=== PATIENT | male | born 1970 | race Caucasian/White ===

== ENCOUNTER 2017-03-29 21:13 | Emergency (ER) | payer OTHER ==
--- NOTE | 2017-03-29 21:21 | ED Physician Documentation ---
PD HPI NVD - Stated complaint Stated Complaint: V/D/F/BODY ACHES - Chief complaint Chief Complaint: General - History obtained from History obtained from: Patient - History of Present Illness Timing - onset: Today Timing - details: Abrupt onset Pain level now: 6 Associated symptoms: No: Fever, Abdominal pain Improved by: Other (no ameliorating factors) Worsened by: Eating (although he is able to tolerate PO, small amounts) Similar symptoms before: Other (some symptoms are similar to episode of food poisoning he had in the past although "that was much, much worse" (per patient)) Recently seen: Not recently seen - Additonal information Additional information: c/o diarrhea since this morning, subsequent nausea and vomiting. Since this evening, he has had worsening generalized body aches, fatigue, and malaise. Review of Systems Constitutional: reports: Chills, Myalgias, Fatigue, Sweats. denies: Fever (did not take temperature at home, but did not feel as though he has had fevers) Ears: denies: Ear pain Throat: denies: Sore throat Cardiac: reports: Reviewed and negative Respiratory: reports: Reviewed and negative GI: reports: Nausea, Vomiting, Diarrhea. denies: Abdominal Pain : denies: Dysuria, Frequency Neurologic: reports: Generalized weakness. denies: Focal weakness, Numbness, Headache PD PAST MEDICAL HISTORY - Past Medical History Cardiovascular: None Respiratory: None Neuro: None Endocrine/Autoimmune: None GI: None : None HEENT: None Psych: None Musculoskeletal: None Derm: None - Past Surgical History Past Surgical History: No - Present Medications Home Medications: Ambulatory Orders Medication Instructions Recorded Confirmed Multivitamin [Multivitamins] 1 mg PO DAILY 07/15/14 07/15/14 - Allergies Allergies/Adverse Reactions: Allergies Allergy/AdvReac Type Severity Reaction Status Date / Time No Known Drug Allergies Allergy Verified 03/29/17 21:18 - Social History Does the pt smoke?: Yes Smoking Status: Current every day smoker Does the pt drink ETOH?: No Does the pt have substance abuse?: No - Immunizations Immunizations are current?: Yes - POLST Patient has POLST: No PD ED PE NORMAL - Vitals Vital signs reviewed: Yes - General General: Alert and oriented X 3, Well developed/nourished, Other (appears "washed out", fatigued, but answers quickly and appropriately) - HEENT HEENT: Other (dry mucous membranes) - Neck Neck: Supple, no meningeal sign - Cardiac Cardiac: RRR, No murmur, No gallop, No rub - Respiratory Respiratory: No respiratory distress, Clear bilaterally - Abdomen Abdomen: Soft, Non tender - Derm Derm: Normal color, Warm and dry Results - Vitals Vitals: Oxygen O2 Source Room air - Labs Labs: Laboratory Tests 03/29/17 03/29/17 03/29/17 21:20 21:50 21:50 WBC 7.3 RBC 4.78 Hgb 14.8 Hct 42.6 MCV 89.0 MCH 30.9 MCHC 34.7 RDW 13.1 Plt Count 189 MPV 9.2 Neut # 6.4 Lymph # 0.6 L Harmon # 0.3 Eos # 0.0 Baso # 0.0 Absolute Nucleated RBC 0.00 Nucleated RBC % 0.0 Sodium 132 L Potassium 3.3 L Chloride 101 Carbon Dioxide 22 Anion Gap 9.0 BUN 14 Creatinine 0.8 Estimated GFR (MDRD) 105 Glucose 126 H Calcium 8.3 L Total Bilirubin 1.3 H AST 26 ALT 33 Alkaline Phosphatase 46 Total Protein 7.1 Albumin 4.1 Globulin 3.0 Albumin/Globulin Ratio 1.4 Lipase < 10 L Influenza A (Rapid) Negative Influenza B (Rapid) Negative Influenza Types A,B Ag - PD MEDICAL DECISION MAKING - ED course Complexity details: reviewed results, re-evaluated patient, considered differential, d/w patient Departure - Departure Disposition: Home, Self Care Clinical Impression: Gastroenteritis Condition: Good Instructions: ED Gastroenteritis Viral Follow-Up: JUDE Christie [Provider Group] (Sunday if symptoms have not resolved) Forms: Activity restrictions Discharge Date/Time: 03/29/17 23:32
[2017-03-29] MEDS ORDERED: ONDANSETRON 4 MG/2 ML VIAL IVP STA (21:38)
[2017-03-29] MEDS ORDERED: SODIUM CHLORIDE 0.9% 1,000 ML IV STA (21:38)
[2017-03-29 22:02] LABS: BASOPHILS % (AUTO) 0.2 %; EOSINOPHILS % (AUTO) 0.1 %; HGB - HEMOGLOBIN 14.8 g/dL (14.0-18.0); LYMPHOCYTES # (AUTO) 0.6 10^3/uL (1.5-3.5); LYMPHOCYTES % (AUTO) 7.6 %; MEAN CORPUSCULAR HEMOGLOBIN 30.9 pg (27.0-31.0); MEAN CORPUSCULAR HGB CONC 34.7 g/dL (32.0-36.0); MEAN PLATELET VOLUME 9.2 fL (7.4-11.4); MONOCYTES # (AUTO) 0.3 10^3/uL (0.0-1.0); MONOCYTES % (AUTO) 4.6 %; NEUTROPHILS # (AUTO) 6.4 10^3/uL (1.5-6.6); NEUTROPHILS % (AUTO) 87.5 %; PLT - PLATELET COUNT 189 10^3/uL (130-450); RED BLOOD COUNT 4.78 10^6/uL (4.70-6.10); RED CELL DISTRIBUTION WIDTH 13.1 % (12.0-15.0); WHITE BLOOD COUNT 7.3 x10^3/uL (4.8-10.8)
[2017-03-29 22:28] LABS: ALBUMIN 4.1 g/dL (3.2-5.5); ALBUMIN/GLOBULIN RATIO 1.4 (1.0-2.2); ALKALINE PHOSPHATASE 46 IU/L (42-121); ALT ALANINE AMINOTRANSFERASE 33 IU/L (10-60); AST ASPARTATE AMINOTRANSFERASE 26 IU/L (10-42); BILIRUBIN,TOTAL 1.3 mg/dL (0.2-1.0); BUN - BLOOD UREA NITROGEN 14 mg/dL (6-20); CALCIUM 8.3 mg/dL (8.5-10.3); CARBON DIOXIDE - CO2 22 mmol/L (21-32); CHLORIDE 101 mmol/L (101-111); CREATININE 0.8 mg/dL (0.6-1.2); GFR - MDRD 105 (>89); GLUCOSE 126 mg/dL (70-100); SODIUM 132 mmol/L (135-145); TOTAL PROTEIN 7.1 g/dL (6.7-8.2)
[2017-03-29 22:30] LABS: LIPASE < 10 U/L (22-51)
[2017-03-29 23:31] VITALS: BP 100/49
== END 2017-03-29 23:32 | disposition home or self-care (01) ==
LOC: ED 21:13
DX: K52.9 Noninfective gastroenteritis and colitis, unspecified (principal); F17.200 Nicotine dependence, unspecified, uncomplicated
CPT/HCPCS: 36415; 80053; 83690; 85025; 87275; 87276; 96361; 96374; 99283

== ENCOUNTER 2021-03-22 14:09 | Outpatient (CLI) | payer OTHER ==
--- NOTE | 2021-03-22 14:52 | SLEEP CARE CONSULTATION ---
Information from patient questionnaire entered by Lucita Jalloh MA. I have reviewed and concur with the information entered by Lucita Jalloh MA. This document represents the service I personally performed and the decisions made by , Batsheva Villasenor ARNP. History of Present Illness Service Date and Time: 03/22/2021 1409 Reason for Visit: New patient (ONSET 02/2011, NO PRIORS, ) Chief Complaint: reports: Snoring (only if on his back ), Frequent awakenings at night Date of Onset: 10 PLUS YEARS Usual bedtime: 3155-4271 Time it takes to fall asleep: 15-30 MINUTES Snores at night: Yes Observed to quit breathing while asleep: No Sleeps alone due to snoring: No Number of times waking at night: 2-4 Reasons for waking at night: reports: Snoring (very rare), Bathroom, Other ( snoring, dog). denies: Choking, Gasping for air Toss, Turn, or Twitch while sleeping: Yes Recalls having dreams: Yes Usually gets out of bed at: 8526-2107; weekends 9-11 AM Feels refreshed in the morning: Yes Morning headache: No Sleepy or fatigued during the day: Yes Ever fallen asleep while driving: No Takes day naps: No Dreams during day naps: No Prior sleep studies: No Additional HPI information: I had the pleasure of seeing CODY LONG today regarding the possibility of him having a sleep disorder. His current complaints are snoring when on his back and frequent night awakenings. He states he was questioned by his PCM at his las appointment about frequent awakening at night and was referred for evaluation. He states that he does snore if he sleeps on his back but he only sleeps on his sides or stomach. He has never been told he has pauses in breathing while asleep. He denies unrefreshed sleep or excessive daytime sleepiness. He states he does get tired in the afternoons. He denies morning headaches or drowsy driving. He does have some restless sensations in his legs when he lays down to sleep. He states his son was diagnosed with sleep apnea but is not adhering to his therapy (possible PAP machine). - Parasomnia Symptoms Ever been unable to move upon waking from sleep: No Walks in sleep: No Talks in sleep: No Ever acted out dreams in sleep: No Ever felt weak in the knees when startled or emotional: No Bothered by creepy, crawly, restless sensations in legs: Yes (nightly when laying down; sleeping makes it feel better) Problems with memory or concentration: No Subjective Initial [place] Sleepiness Scale score: 8 (2021) Social History The patient's occupation is a [employer]. Patient is and lives in [place]. Have you smoked in the past 12 months: No Cigarettes per day (20/pack): 20 Years of smokin Quit date: 2004 Smoking Pack Years: 15.0 Alcohol use: Yes Alcohol amount and frequency: 3 beers, occasional 1-2 times week Caffeine use: Yes Caffeine amount and frequency: 3 10 ounce cups coffee X DAILY Family History Family history of sleep disordered breathing: Yes Family Hx Sleep Apnea: Father: Sleep apnea - Untreated (SON), Grandparent: Snoring, Sleep apnea - Untreated, Other: Sleep apnea - Untreated Allergies and Home Medications Drug allergies reviewed: Yes (NKDA) Home medication list reviewed: Yes Allergy and home medication list: Allergies No Known Drug Allergies Allergy (Verified 03/29/17 21:18) Medication/Supplements: OTC Multivitamin Turmeric Fish oil Garlic supplement Melatonin, prn Review of Systems Weight gain over past 5 years: 30 Cardiovascular: denies: high blood pressure Gastrointestinal: reports: heartburn Musculoskeletal: reports: joint pain, muscle pain or cramping Immunologic: reports: sneezing, allergies to food or environment (dust, pollen) Physical Exam Vital signs obtained and entered by: CARON LOMBARDI Blood Pressure: 135/83 (RIGHT, PULSE 72, RESP 14,) Cuff size: wrist Heart Rate: 76 O2 Saturation: 96 (WITH PAPER MASK) Height: 5 ft 10 in Weight: 247 lb (W/O CLOTHES) Body Mass Index: 35.4 BMI Classification: Obese Neck circumference: 17.75 (inches) Mouth and throat: narrow oropharynx Soft palate: long Hard palate: arched Uvula: normal, long Uvula visualization: 50% Mallampati Class II Tongue: enlarged in size with teeth shannon on lateral edges Tonsils: 1+ Neck: normal w/o lymphadenopathy or thyromegaly Heart: regular rate and rhythm Lungs: clear bilaterally Impression and Plan 1. Suspected Obstructive Sleep Apnea-Hypopnea Syndrome, as suggested by a history of loud and irregular snoring when on his back and frequent awakenings during the night. Narrow oropharynx and obesity are common predisposing factors for obstructive sleep apnea-hypopnea syndrome. I recommend proceeding to polysomnography to confirm the diagnosis and to assess severity. If the patient has significant sleep disordered breathing, a manual CPAP titration study will also be performed to find the optimal treatment pressure. I informed the patient of what the sleep studies involve and after some discussion, obtained agreement to proceed. The pathophysiology of obstructive sleep apnea-hypopnea syndrome was discussed with the patient and health risks of cardiovascular and cerebrovasc ular disease if not treated. Risks of drowsy driving discussed in detail and patient advised to avoid long distance driving and to pullman car clerk at the first sign of drowsiness. Patient agreed to plan. * Schedule polysomnography * Avoid long distance driving or driving when feeling sleepy. * Avoid alcohol, sedative and muscle relaxant around bedtime. * Attempt to lose weight. * Review instructions provided by trained office staff on how to prepare for the sleep study. * Return for follow-up after sleep study completed. Counseling Topics: Weight loss health impact Visit Type: In Office Time Spent with Patient (minutes): 30 Provider Statement: I spent 100% of the Face to Face Visit with the patient with greater than 50% spent counseling the patient and coordination of care.
[2021-03-22 14:53] VITALS: BP 135/83
== END 2021-03-22 14:10 | disposition home or self-care (01) ==
LOC: SC 14:09
PROVIDERS: ATTEND Nurse Practitioner Family
DX: R06.83 Snoring (principal); E66.9 Obesity, unspecified; Z68.35 Body mass index [BMI] 35.0-35.9, adult
CPT/HCPCS: 99203; 99212

== ENCOUNTER 2021-04-25 19:31 | Outpatient (CLI) | payer OTHER | END 2021-04-25 19:32 | disposition home or self-care (01) | LOC: SC 19:31 | PROVIDERS: ATTEND Nurse Practitioner Family | DX: G47.33 Obstructive sleep apnea (adult) (pediatric) (principal); G47.61 Periodic limb movement disorder | CPT/HCPCS: 95810 ==

== ENCOUNTER 2021-05-13 14:27 | Outpatient (CLI) | payer OTHER ==
[2021-05-13 15:09] VITALS: BP 135/83
--- NOTE | 2021-05-13 15:09 | SLEEP CARE CONSULTATION ---
Information from patient questionnaire entered by Lucita Jalloh MA. I have reviewed and concur with the information entered by Lucita Jalloh MA. This document represents the service I personally performed and the decisions made by , Batsheva Villasenor ARNP. History of Present Illness Service Date and Time: 05/13/2021 1427 Initial [place] Sleepiness Scale score: 8 (2021) Current [place] Sleepiness Scale score: 4 (05/2021) Additional HPI information: CODY LONG returns for follow up and results of the recently performed polysomnography. I explained the pathophysiology behind obstructive sleep apnea. We then spent quite a bit of time discussing different treatment options. For mild obstructive sleep apnea, surgery and oral appliance are alternatives to nasal CPAP therapy but in moderate or severe cases, nasal CPAP is the most effective and reliable treatment. Because apnea is primarily in supine position, then positional management therapy could be effective. Methods discussed such as positioning with pillows to prevent supine sleep. I reviewed the impact of weight changes on sleep apnea and strongly recommended losing weight. After some discussion, the patient opted to go with the nasal CPAP therapy. Nasal autoCPAP set at 4-15 cmH20 will be ordered with rationale explained. A manual titration study will be ordered if unable to find optimal pressure with office adjustments. I explained how CPAP machine works and what to expect when using the machine. Using CPAP every night in order to get used to it was emphasized. Patient advised to put CPAP mask on before getting into bed so as not to fall asleep without CPAP. To assist acclimation to CPAP use, it could also be used for a short time during day while reading or watching TV. The patient was instructed to call the CPAP supplier to discuss any mechanical problem that may occur. If the mask given is uncomfortable or is difficult to keep on through the night even with adjustment, contact the CPAP supplier as many will replace with another mask style if notified before 30 days. If snoring or perceives is not getting enough air or too much air from the machine, notify this office. [facility] patient education PAP tips reviewed and given to patient. Patient counseled not drink alcohol less than 4 hours before bedtime as it can increase snoring and apnea. Patient was cautioned about risks of drowsy driving until sleepiness symptoms resolve. Patient denies drowsy driving. Sleep Study - Results Type of Sleep Study: Polysomnography (F/U POLY, 04/25/21 [facility] Prior sleep studies: No Polysomnography/Home Sleep Study results: IMPRESSION: The quality of the study is good. The patient had normal sleep efficiency. The sleep architecture was relatively normal as well considering the first night effect. Respiratory monitoring showed mild obstructive sleep apnea-hypopnea (AHI = 7.1) associated with oxyhemoglobin desaturation and mild hypoxia (deborah oxygen saturation of 81%). The respiratory events occurred mainly during REM sleep (supine AHI = 25.3; non-supine = 6.19). Snore was moderate in intensity. There was moderate periodic leg movement of sleep not associated with sleep fragmentation. Cardiac rhythm was normal sinus rhythm without significant arrhythmia. No abnormal behavior (parasomnia) observed during the night. Allergies and Home Medications Known drug allergies: No Drug allergies reviewed: Yes Home medication list reviewed: Yes (no changes) Allergy and home medication list: Allergies No Known Drug Allergies Allergy (Verified 03/29/17 21:18) Review of Systems Review of systems same as previous: Yes (no changes) Physical Exam Vital signs obtained and entered by: JOSE LOMBARDI Blood Pressure: 135/83 (PULSE 78, RESP 18, RIGHT, ) Cuff size: wrist Heart Rate: 79 O2 Saturation: 97 (PAPER) Height: 5 ft 10 in Impression and Plan 1. Obstructive Sleep Apnea-Hypopnea Syndrome, mild, with lowest oxygen saturation of 81%. Obviously this is the cause of the patients symptoms of unrefreshed sleep, and excessive daytime sleepiness. As mentioned above, the patient will be started on nasal autoCPAP therapy with pressure set at 4-15 cmH2 O. Compliance guidelines also reviewed. A copy of compliance guidelines will be given for reference at check out. Because the apnea is more severe supine, I instructed to avoid sleeping supine using pillow positioning until able to start CPAP use. 2. Periodic limb movement, moderate, that did not fragment patients sleep. Periodic limb movement of sleep (PLMS) is characterized by episodes of repetitive limb movements that occur during sleep and usually involve the lower limbs. The etiology is unknown. Caffeine can aggravate PLMS and should be avoided. Sleep hygiene methods can also improve sleep as well as lifestyle changes such as regular exercise. Patient was advised that no treatment is needed at this time. If symptoms increase, then further evaluation is indicated. * Nasal auto CPAP therapy, pressure at 4-15 cm H2O. * Attempt to lose weight. * Avoid alcohol consumption near bedtime. * Avoid supine sleep until using CPAP. * The patient is again cautioned about driving until sleepiness completely resolves. * Return one month after CPAP obtained. I will assess response to therapy and compliance at that time. Counseling Topics: Sleeping position, Weight loss health impact Visit Type: In Office Time Spent with Patient (minutes): 20 Provider Statement: I spent 100% of the Face to Face Visit with the patient with greater than 50% spent counseling the patient and coordination of care.
== END 2021-05-13 14:28 | disposition home or self-care (01) ==
LOC: SC 14:27
PROVIDERS: ATTEND Nurse Practitioner Family
DX: G47.33 Obstructive sleep apnea (adult) (pediatric) (principal); G47.61 Periodic limb movement disorder
CPT/HCPCS: 99212; 99213